=== PATIENT | female | born 1985 | race Caucasian/White ===

== ENCOUNTER 2016-12-03 10:50 | Emergency (ER) | payer OTHER ==
[~2016-12-03] VITALS: Ht 154.9 cm; Wt 71.7 kg
[~2016-12-03 10:50] MED LIST: CHOL500016 PO; CITA20TA9 PO; DOCU-27 PO; GABA-586 PO; HYDR-971 PO; IBUP-1060 PO; METO-269 PO; ONDA4TAB10 SL; ORPH100T PO; TRAM50TA PO
[2016-12-03 11:45] VITALS: BP 122/81
--- NOTE | 2016-12-03 12:39 | PHYS DOC ---
Past Medical History Past Medical History: Depression, Fibromyalgia, Migraines, Other Additional Past Medical Histor: neuropathy, chronic pain Past Surgical History: Appendectomy, , Tubal ligation, Other Additional Past Surgical Histo: carpal tunnel Additional Information: PT REPORTS 1 PPD. Alcohol Use: None Drug Use: None Adult General Chief Complaint Chief Complaint: LOWER EXT PAIN HPI HPI Patient is a 31 year old female who presents with chronic extremity pain for months. Reports pain was exacerbated last night without cause. Reports her primary suggested pain mgmt follow up with she has not done. Denies any focal weakness, numbness/tingling or accom[panying symptoms. States pain encompasses entire right leg hip to foot. Also request test Review of Systems Review of Systems Constitutional: Denies fever or chills Eyes: Denies change in visual acuity, redness, or eye pain HENT: Denies nasal congestion or sore throat Respiratory: Denies cough or shortness of breath Cardiovascular: No additional information not addressed in HPI GI: Denies abdominal pain, nausea, vomiting, bloody stools or diarrhea : Denies dysuria or hematuria Musculoskeletal: Right leg pain Integument: Denies rash or skin lesions Neurologic: Denies headache, focal weakness or sensory changes Endocrine: Denies polyuria or polydipsia Allergies Allergies Allergies Coded Allergies Type Severity Reaction Last Updated Verified No Known Drug Allergies 08/06/16 No Physical Exam Physical Exam Constitutional: Well developed, well nourished, no acute distress, non-toxic appearance. HENT: Normocephalic, atraumatic, bilateral external ears normal, oropharynx moist, no oral exudates, nose normal. Eyes: PERRLA, EOMI, conjunctiva normal, no discharge. Neck: Normal range of motion, no tenderness, supple, no stridor. Cardiovascular:Heart rate regular rhythm, no murmur Lungs & Thorax: Bilateral breath sounds clear to auscultation Abdomen: Bowel sounds normal, soft, no tenderness, no masses, no pulsatile masses. Skin: Warm, dry, no erythema, no rash. Back: No tenderness, no CVA tenderness. Extremities: No tenderness, no cyanosis, no clubbing, ROM intact, no edema. Neurologic: Alert and oriented X 3, normal motor function, normal sensory function, no focal deficits noted. Psychologic: Affect normal, judgement normal, mood normal. [] Current Patient Data Vital Signs Vital Signs Date Time Temp Pulse Resp B/P Pulse Ox O2 Delivery O2 Flow Rate FiO2 12/03/16 11:45 98.4 79 18 99 Room Air 98.4 Lab Values Laboratory Tests Test 12/03/16 12:15 12/03/16 12:28 Urine Test Negative (NEG) POC Urine HCG, Qualitative Hcg negative (Negative) EKG EKG [] Radiology/Procedures Radiology/Procedures [] Impressions: 1. Exacerbation of chronic lower extremity pain Course & Med Decision Making Course & Med Decision Making Pertinent Labs and Imaging studies reviewed. (See chart for details) [] Dragon Disclaimer Dragon Disclaimer This electronic medical record was generated, in whole or in part, using a voice recognition dictation system. Departure Departure Impression: Primary Impression: Chronic pain of right lower extremity Disposition: HOME, SELF-CARE Condition: STABLE Referrals: JERRELL GONZALEZ MD (PCP) Patient Instructions: Chronic Pain Additional Instructions: Take all medication as prescribed. Follow up with primary doctor in 1-2 days. return if any problems or concerns Scripts Hydrocodone/Apap 5-325 (Jackhorn 5-325 Tablet)1 Each Tablet1 Tab PO PRN Q6HRS PRN PAIN #10 TAB Ref 0 Prov:HERNANDEZ BUTLER APRN 12/03/16 Cyclobenzaprine Hcl 10 Mg Tablet1 Tab PO QHS #10 TAB Prov:HERNANDEZ BUTLER APRN 12/03/16 HERNANDEZ BUTLER APRN Dec 03, 2016 12:39
[2016-12-03] MEDS ORDERED: CYCL10TA2 PO (12:42)
[2016-12-03] MEDS ORDERED: HYDR-971 PO (12:42)
[2016-12-03 12:48] LABS: NEG OBC UR NEG
[2016-12-03 12:49] LABS: POS OBC UR POS
== END 2016-12-03 12:50 | disposition home or self-care (01) ==
LOC: ER 10:50
DX: G89.29 Other chronic pain (principal); M79.604 Pain in right leg; F17.200 Nicotine dependence, unspecified, uncomplicated; G43.909 Migraine, unspecified, not intractable, without status migrainosus; M79.7 Fibromyalgia; Z90.49 Acquired absence of other specified parts of digestive tract; Z98.51 Tubal ligation status; Z98.890 Other specified postprocedural states
CPT/HCPCS: 81025; 84703; 99283

== ENCOUNTER 2016-12-09 09:58 | Emergency (ER) | payer OTHER ==
[~2016-12-09] VITALS: Ht 157.5 cm; Wt 71.4 kg
[~2016-12-09 09:58] MED LIST changes: +CYCL10TA2 PO
[2016-12-09 11:58] LABS: BILIRUBIN,URINE NEGATIVE (NEG); GLUCOSE,URINE NEGATIVE (NEG); NITRITE,URINE NEGATIVE (NEG); PH,URINE 6.5; PROTEIN,URINE NEGATIVE (NEG-TRACE); UROBILINOGEN,URINE 0.2 mg/dL (0.2 mg/dL)
[2016-12-09 12:21] LABS: BACTERIA,URINE FEW /HPF (0-FEW); RBC,URINE RARE /HPF (0-2); SQUAMOUS EPITHELIAL CELL,UR MOD /LPF
--- NOTE | 2016-12-09 12:29 | PHYS DOC ---
Past Medical History Past Medical History: Depression, Fibromyalgia, Migraines, Other Additional Past Medical Histor: neuropathy, chronic pain Past Surgical History: Appendectomy, , Tubal ligation, Other Additional Past Surgical Histo: carpal tunnel Alcohol Use: None Drug Use: None Adult General Chief Complaint Chief Complaint: ABDOMINAL PAIN HPI HPI Patient is a 31 year old female who presents with many symptoms and concerned she is . She is currently asymptomatic other than abdominal bloating. She has intermittent abdominal bloating and nausea, and frequent stools. States she feels something moving in her lower abdomen like a baby. Feels mild intermittent lower abdominal pain and low back pain. Has taken home tests that are negative. States symptoms have been present for few weeks to months. LMP within past month. She denies f/c, cough, bloody or dark stools, vaginal bleeding or discharge, dysuria, hematuria. Review of Systems Review of Systems Constitutional: Denies fever or chills [] Eyes: Denies change in visual acuity, redness, or eye pain [] HENT: Denies nasal congestion or sore throat [] Respiratory: Denies cough or shortness of breath [] Cardiovascular: No additional information not addressed in HPI [] GI: Denies abdominal pain, nausea, vomiting, bloody stools or diarrhea [] : Denies dysuria or hematuria [] Musculoskeletal: Denies back pain or joint pain [] Integument: Denies rash or skin lesions [] Neurologic: Denies headache, focal weakness or sensory changes [] Endocrine: Denies polyuria or polydipsia [] Allergies Allergies Allergies Coded Allergies Type Severity Reaction Last Updated Verified No Known Drug Allergies 08/06/16 No Physical Exam Physical Exam Constitutional: Well developed, well nourished, no acute distress, non-toxic appearance. [] HENT: Normocephalic, atraumatic, bilateral external ears normal, oropharynx moist, nose normal. [] Eyes: PERRLA, EOMI. [] Neck: Normal range of motion, supple. [] Cardiovascular:Heart rate regular rhythm [] Lungs & Thorax: Bilateral breath sounds clear to auscultation [] Abdomen: Bowel sounds normal, soft, no tenderness, no masses. [] Skin: Warm, dry, no erythema, no rash. [] Back: No tenderness, no CVA tenderness. [] Extremities: No tenderness, ROM intact, no edema. [] Neurologic: Alert and oriented X 3, normal motor function, normal sensory function, no focal deficits noted. [] Psychologic: Affect normal, judgement normal, mood normal. [] Current Patient Data Vital Signs Vital Signs Date Time Temp Pulse Resp B/P Pulse Ox O2 Delivery O2 Flow Rate FiO2 12/09/16 12:47 81 20 108/73 94 12/09/16 11:20 98.0 Room Air 98.0 Lab Values Laboratory Tests Test 12/09/16 11:10 12/09/16 11:18 Urine Collection Type Void Urine Color Yellow Urine Clarity Clear Urine pH 6.5 Urine Specific [place] 1.010 Urine Protein Negativemg/dL (NEG-TRACE) Urine Glucose (UA) Negativemg/dL (NEG) Urine Ketones (Stick) Negativemg/dL (NEG) Urine Blood Negative (NEG) Urine Nitrite Negative (NEG) Urine Bilirubin Negative (NEG) Urine Urobilinogen Dipstick 0.2mg/dL (0.2 mg/dL) Urine Leukocyte Esterase Negative (NEG) Urine RBC Rare/HPF (0-2) Urine WBC 1-4/HPF (0-4) Urine Squamous Epithelial Cells Mod/LPF Urine Bacteria Few/HPF (0-FEW) POC Urine HCG, Qualitative Hcg negative (Negative) Course & Med Decision Making Course & Med Decision Making Pertinent Labs and Imaging studies reviewed. (See chart for details) UCG neg, UA unremarkable. Encouraged PCP follow up. Return precautions given. She understands and agrees with plan. Dragon Disclaimer Dragon Disclaimer This electronic medical record was generated, in whole or in part, using a voice recognition dictation system. Departure Departure Impression: Primary Impression: Lower abdominal pain Disposition: 01 HOME, SELF-CARE Condition: STABLE Referrals: JERRELL GONZALEZ MD (PCP) Patient Instructions: Diarrhea, [id number] Additional Instructions: Take Tylenol or ibuprofen as needed for pain. Follow-up with your primary care doctor within one week. Return for any concerns. Jean MCCARTHY MD Dec 09, 2016 12:29
[2016-12-09 12:47] VITALS: BP 108/73
== END 2016-12-09 12:48 | disposition home or self-care (01) ==
LOC: ER 09:58
DX: R10.30 Lower abdominal pain, unspecified (principal); G89.29 Other chronic pain; M79.7 Fibromyalgia; Z90.49 Acquired absence of other specified parts of digestive tract; Z98.51 Tubal ligation status
CPT/HCPCS: 81001; 81025; 99283

== ENCOUNTER 2018-02-04 19:48 | Emergency (ER) | payer OTHER | END 2018-02-04 20:24 | disposition home or self-care (01) | LOC: ER 19:48 | DX: L03.116 Cellulitis of left lower limb (principal); S90.862A Insect bite (nonvenomous), left foot, initial encounter; G43.909 Migraine, unspecified, not intractable, without status migrainosus; G89.29 Other chronic pain; W57.XXXA Bitten or stung by nonvenomous insect and other nonvenomous arthropods, initial encounter; Y93.89 Activity, other specified; Y99.8 Other external cause status; Y92.89 Other specified places as the place of occurrence of the external cause | CPT/HCPCS: 99283 ==

== ENCOUNTER → 2019-01-12 | Outpatient (CLI) | payer OTHER ==
[2018-02-04 20:04] VITALS: BP 160/91
[~2019-01-12] MED LIST changes: +DOCU-109 PO; -DOCU-27 PO; -GABA-586 PO; +GABA300C18 PO; +HYDR-3164 PO; -HYDR-971 PO; +IBUP-1007 PO; +SULF1TAB24 PO
--- NOTE | 2019-01-12 10:57 | RAD ---
DATE: 01/12/2019 EXAM: DIGITAL DIAGNOSTIC BILATERAL, BREAST BILATERAL HISTORY: Medial right breast pain COMPARISON: Baseline study This study was interpreted with the benefit of Computerized Aided Detection (CAD). Breast Density: SCATTERED The breast parenchyma shows scattered fibroglandular densities. Breast parenchyma level B. FINDINGS: 2-D imaging of both breasts was performed in CC and MLO projections, as well as CC tomosynthesis imaging on the right. There is a smooth7 mm nodule in the inferomedial aspect of the right breast posteriorly at approximately the 3-4:00 location as best seen on CC tomosynthesis images #19. No other unusual breast densities are seen. No suspicious microcalcifications are evident. Right breast ultrasound, 01/12/2019: A targeted ultrasound exam of the medial right breast was performed. Heterogeneous fibroglandular shadows are present. No mass or unusual fluid collection is seen. No sonographic correlate for the mammographically detected nodule was evident. IMPRESSION: Small smooth right breast nodule with no sonographic correlate. Mammographic follow-up beginning in 4-6 months is suggested. BI-RADS CATEGORY: 3 PROBABLY BENIGN FINDING(S)-SHORT INTERVAL FOLLOW-UP SUGGESTED RECOMMENDED FOLLOW-UP: 6M 6 MONTH FOLLOW-UP PQRS compliance statement: Patient information was entered into a reminder system with a target due date for the next mammogram. Mammography is a sensitive method for finding small breast cancers, but it does not detect them all and is not a substitute for careful clinical examination. A negative mammogram does not negate a clinically suspicious finding and should not result in delay in biopsying a clinically suspicious abnormality. "Our facility is accredited by the [employer] Mammography Program."
== END | disposition home or self-care (01) ==
LOC: MAMMO 15:31
PROVIDERS: ATTEND Family Medicine
DX: N63.14 Unspecified lump in the right breast, lower inner quadrant (principal)
CPT/HCPCS: 76641; 77066

== ENCOUNTER → 2019-02-14 | Outpatient (CLI) | payer OTHER ==
[2018-02-04 20:04] VITALS: BP 160/91
--- NOTE | 2019-02-14 16:57 | RAD ---
EXAM: Pelvic sonogram. HISTORY: Dysmenorrhea. TECHNIQUE: Transabdominal and transvaginal sonographic imaging of the pelvis was performed. COMPARISON: None. FINDINGS: The uterus measures 9.8 x 6.8 x 5.7 cm. The endometrial stripe is thickened, measuring 15 mm. The ovaries are normal in size transabdominally and not seen transvaginally. There is normal blood flow within both ovaries. There is a 7 mm nabothian cyst within the cervix. There is no pelvic free fluid. IMPRESSION: 1. Slightly thickened endometrial stripe, measuring 15 mm. This may be due to the phase of the patient's menstrual cycle. 2. Small nabothian cyst within the cervix. Electronically signed by: Zaina Vogt MD (02/14/2019 4:54 PM) [facility]
== END | disposition home or self-care (01) ==
LOC: US 15:07
PROVIDERS: ATTEND Family Medicine
DX: N88.8 Other specified noninflammatory disorders of cervix uteri (principal)
CPT/HCPCS: 76830; 76856

== ENCOUNTER 2019-04-18 07:26 | Day surgery (SDC) | payer OTHER ==
[~2019-04-18] VITALS: Ht 156.2 cm; Wt 97.5 kg
[~2019-04-18 07:26] MED LIST changes: +BUPIVACAINE MPF 0.5% 30 ML VIAL. ONE; +HYDROmorphone 2 MG/ML VIAL IV PRN; +IV RINGERS,LACTATED 1000ML 1,000 ML IV SCH; +LIDOCAINE 1% 20 ML VIAL. ONE; +LIDOCAINE 1% PF 2 ML VIAL. ID PRN; +LIDOCAINE 1% PF 30 ML VIAL. ONE; +LIDOCAINE 2% PF 5 ML VIAL. ONE; +MIDAZOLAM HCL/PF 2 MG/2 ML VIAL. ONE; +ONDANSETRON PF 4 MG/2 ML VIAL. IV PRN; +ONDANSETRON PF 4 MG/2 ML VIAL. ONE; +PROCHLORPERAZINE 10 MG/2 ML VIAL. IV PRN; +PROPOFOL 20 ML IV ONE; +fentaNYL PF VIAL 100 MCG/2 ML VIAL IV PRN; +fentaNYL PF VIAL 100 MCG/2 ML VIAL ONE
--- NOTE | 2019-04-18 07:53 | DISCH ---
DISCHARGE INSTRUCTIONS Condition on Discharge Condition on Discharge: Stable Activity After Discharge Activity Instructions for Disc: Activity as tolerated, Other, see below Other activity instructions: AROM at wrist and fingers Bathing Instructions: Shower-keep dressing dry Lifting Instructions after Dis: No heavy lifting, No pulling or pushing Weight Bearing Status after Di: As tolerated, Non weight bearing Diet after Discharge Diet after Discharge: Regular Wound Incision Care Wound/Incision Care: Ice to area for comfort, Keep wound/cast CDI, Keep wound elevated, Do not change dressing Contacting the [facility] after DC Call your doctor for: Concerns you may have Follow-Up Follow up with: [facility] in 2wks Treatment/Equipment after DC Adaptive Equipment Issued: None HANNAH BRYANT II, MD Apr 18, 2019 07:53
[2019-04-18 08:26] LABS: U PREG PATIENT NEGATIVE (NEG)
[2019-04-18] MEDS ORDERED: PROPOFOL 20 ML IV ONE (09:43)
[2019-04-18] MEDS ORDERED: KETOROLAC 30 MG/ML INJ FOR OR. INJ ONE (10:01)
--- NOTE | 2019-04-18 10:07 | PDOC4 ---
Operative Note Operative Note Date of procedure: 04/18/2019 Surgeon: Chidi Bryant Preoperative diagnosis: Left carpal tunnel syndrome Postoperative diagnosis: Same Procedure performed: Open left carpal tunnel release Anesthesia: Cibolo block with sedation Findings: normal appearing median nerve Blood loss: 2mL Tourniquet time: 25min Complications: none Reason for procedure: Patient is very pleasant individual who has had long- standing symptoms consistent with their electromyographically proven EMG diagnosis of carpal tunnel syndrome. We had tried and failed conservative therapies and had a discussion of the risks, benefits, alternatives to the above surgery and they wished to proceed. Description of procedure: Patient was greeted in the preoperative area by myself for the correct extremity was verified and marked. They were then taken back to the operative suite, antibiotics were started as they were brought back. Once in the operating room, patient was transferred gently supine to the operating room table. The hand board attached and was applied to the operating room table. She underwent successful induction of a Cibolo block followed by sedation. The left upper extremity was then prepped and draped in our usual sterile fashion and we conducted our standard preoperative timeout.after this, I made an incision over the transverse carpal ligament from the distal wrist crease into the palm through a palmar crease. I incised skin with a scalpel and dissected subcutaneous tissue with a curved hemostat. I used bipolar cautery for hemostasis. Identified the palmar fascia and incised this in line with the skin incision and then placed myself retaining retractor. I identified the transverse carpal ligament and incised this with a scalpel. I then placed a Ragnell retractor in the distal portion of the incision, spread above and below small remaining portion of the transverse carpal ligament and transected this with a tenotomy scissors into the palm. After this, I repeated this maneuver and an ulnar directed fashion to release the distal antebrachial fascia at the proximal portion of the incision. I then palpated along the course of the median nerve with the tip of the tenotomies to help ensure that accomplished a complete release. The operative field was then irrigated out with sterile saline. After this, skin was closed with 3-0 nylon in a mattress fashion. A sterile bulky soft dressing was then applied to the patient�s hand and wrist. The tourniquet was let down, hemostasis had been achieved with electrocautery. Patient tolerated surgery well. No complications. At the conclusion, they were awakened and transferred gently supine to the recovery room cart and taken to the PACU in a stable and extubated condition. Postoperative plan is to discharge patient home. Frequent range of motion at digits and wrist was encouraged. The patient was instructed not to lift anything heavy. We will see her back in 2 weeks, sooner should a problem arise. CHIDI BRYANT II, MD Apr 18, 2019 10:07
[2019-04-18] MEDS: MORPHINE SULFATE 2 MG/ML VIAL. IV PRN ×2 (10:35→10:47)
[2019-04-18] MEDS ORDERED: HYDROcodone/APAP 5/325MG 1 TAB TABLET PO ONE (10:45)
[2019-04-18] MEDS ORDERED: ONDA4TAB7 PO (11:14)
[2019-04-18 11:40] VITALS: BP 114/81
== END 2019-04-18 12:07 | disposition home or self-care (01) ==
LOC: SURG 07:26
PROVIDERS: ATTEND Orthopaedic Surgery Sports Medicine
DX: G56.02 Carpal tunnel syndrome, left upper limb (principal)
CPT/HCPCS: 64721; 81025; J0690; J0696; J1885; J2001; J2250; J2270; J2405; J2704; J3010; J3490

== ENCOUNTER → 2019-06-28 | Outpatient (CLI) | payer MEDICAID ==
[~2019-06-28] MED LIST changes: -BUPIVACAINE MPF 0.5% 30 ML VIAL. ONE; -HYDROmorphone 2 MG/ML VIAL IV PRN; -IV RINGERS,LACTATED 1000ML 1,000 ML IV SCH; -LIDOCAINE 1% 20 ML VIAL. ONE; -LIDOCAINE 1% PF 2 ML VIAL. ID PRN; -LIDOCAINE 1% PF 30 ML VIAL. ONE; -LIDOCAINE 2% PF 5 ML VIAL. ONE; -MIDAZOLAM HCL/PF 2 MG/2 ML VIAL. ONE; +ONDA4TAB7 PO; -ONDANSETRON PF 4 MG/2 ML VIAL. IV PRN; -ONDANSETRON PF 4 MG/2 ML VIAL. ONE; -PROCHLORPERAZINE 10 MG/2 ML VIAL. IV PRN; -PROPOFOL 20 ML IV ONE; -fentaNYL PF VIAL 100 MCG/2 ML VIAL IV PRN; -fentaNYL PF VIAL 100 MCG/2 ML VIAL ONE
--- NOTE | 2019-06-28 17:46 | RAD ---
DATE: 06/28/2019 EXAM: DIGITAL DIAGNOSTIC RT, BREAST RIGHT HISTORY: Six-month follow-up for palpable abnormality. COMPARISON: 01/12/2019 screen mammographic exam 01/12/2019 right breast ultrasound This study was interpreted with the benefit of Computerized Aided Detection (CAD). Breast Density: SCATTERED The breast parenchyma shows scattered fibroglandular densities. Breast parenchyma level B. FINDINGS: A BB marker was placed on the right lower inner breast where a palpable abnormality is reported. No suspicious findings at this site on mammographic imaging. Parenchymal distribution is stable. Limited right lower inner quadrant breast ultrasound exam was performed at the site of the reported palpable abnormality. No suspicious imaging finding. No suspicious finding upon physical exam by myself at the site of interest reported by the patient. IMPRESSION: Stable. BI-RADS CATEGORY: 1 NEGATIVE RECOMMENDED FOLLOW-UP: 12M 12 MONTH FOLLOW-UP PQRS compliance statement: Patient information was entered into a reminder system with a target due date at the age of 36 years unless clinically indicated to be performed sooner for the next mammogram. Mammography is a sensitive method for finding small breast cancers, but it does not detect them all and is not a substitute for careful clinical examination. A negative mammogram does not negate a clinically suspicious finding and should not result in delay in biopsying a clinically suspicious abnormality. "Our facility is accredited by the [employer] Mammography Program."
== END | disposition home or self-care (01) ==
LOC: MAMMO 12:50
PROVIDERS: ATTEND Family Medicine
DX: R92.8 Other abnormal and inconclusive findings on diagnostic imaging of breast (principal)
CPT/HCPCS: 76641; 77065

== ENCOUNTER 2019-09-19 06:10 | Observation (INO) | payer MEDICAID ==
[~2019-09-19] VITALS: Ht 156.2 cm; Wt 89.8 kg
[2019-09-19] VITALS (10 sets, daily range): BP systolic 96–129; BP diastolic 51–82
[~2019-09-19 06:10] MED LIST changes: +BUSP15TA PO; +HYDR50CA PO; +PROP10TA PO; +SUMA50TA3 PO; +VENL225T PO
[2019-09-19] MEDS: IV RINGERS,LACTATED 1000ML 1,000 ML IV SCH ×2 (06:46→11:16)
[2019-09-19] MEDS ORDERED: MORPHINE SULFATE 2 MG/ML VIAL. IV PRN ×2 (07:00→10:30)
[2019-09-19] MEDS ORDERED: ceFAZolin 2GM PREMIX 2 GM/50 ML BAG IV ONE (07:00)
[2019-09-19] MEDS ORDERED: HYDROmorphone 2 MG/ML VIAL IV PRN (07:00)
[2019-09-19] MEDS ORDERED: ONDANSETRON PF 4 MG/2 ML VIAL. IV PRN (07:00)
[2019-09-19] MEDS ORDERED: PROCHLORPERAZINE 10 MG/2 ML VIAL. IV PRN (07:00)
[2019-09-19] MEDS ORDERED: fentaNYL PF VIAL 100 MCG/2 ML VIAL IV PRN (07:00)
[2019-09-19] MEDS ORDERED: LIDOCAINE 1% PF 2 ML VIAL. ID PRN (07:00)
[2019-09-19] MEDS ORDERED: SEVOFLURANE > 120 MINUTES. IH ONE (07:06)
[2019-09-19] MEDS ORDERED: KETOROLAC 30 MG/ML VIAL. ONE (07:07)
[2019-09-19] MEDS ORDERED: MIDAZOLAM HCL/PF 2 MG/2 ML VIAL. ONE (07:07)
[2019-09-19] MEDS ORDERED: GLYCOPYRROLATE 1 MG/5 ML VIAL. ONE (07:07)
[2019-09-19] MEDS ORDERED: PROPOFOL 20 ML IV ONE (07:07)
[2019-09-19] MEDS ORDERED: NEOSTIGMINE METHYLSULFATE 5 MG/5 ML SYRINGE. ONE (07:07)
[2019-09-19] MEDS ORDERED: ROCURONIUM 50 MG/5 ML VIAL. ONE (07:07)
[2019-09-19] MEDS ORDERED: fentaNYL PF VIAL 100 MCG/2 ML VIAL ONE ×2 (07:07→10:04)
[2019-09-19] MEDS ORDERED: LIDOCAINE 2% PF 5 ML VIAL. ONE (07:07)
[2019-09-19] MEDS ORDERED: DEXAMETHASONE SOD PHOS 4 MG/ML VIAL ONE (07:08)
[2019-09-19] MEDS ORDERED: ONDANSETRON PF 4 MG/2 ML VIAL. ONE (07:08)
[2019-09-19 07:14] LABS: BASO # 0.1 x10^3/uL (0.0-0.2); BASO % 1 % (0-3); EOS # 0.3 x10^3/uL (0.0-0.7); EOS % 3 % (0-3); HEMATOCRIT 36.7 % (36.0-47.0); HEMOGLOBIN 11.9 g/dL (12.0-15.5); LYMPH # 2.7 x10^3/uL (1.0-4.8); LYMPH % 25 % (24-48); MEAN CORPUSCULAR HEMOGLOBIN 27 pg (25-35); MEAN CORPUSCULAR HGB CONC 32 g/dL (31-37); MEAN CORPUSCULAR VOLUME 84 fL (79-100); MONO # 0.6 x10^3/uL (0.0-1.1); MONO % 5 % (0-9); NEUT # 7.1 x10^3/uL (1.8-7.7); NEUT % 66 % (31-73); PLATELET COUNT 465 x10^3/uL (140-400); WHITE BLOOD COUNT 10.7 x10^3/uL (4.0-11.0)
--- NOTE | 2019-09-19 07:18 | PDOC1 ---
H & P. HPI: 34y presents for scheduled surgery. The pt presented to her visit on 09/05/19 b/c she states that she really wants a hysterectomy. She states that her periods are horrible. She reports that her flow last 6-7 days and is always heavy. She feels that it may have been worse since her BTL in 2011. After thinking about it for a whole she feels that maybe the pain with her period developed at that time and that her bleeding did not change significantly. She states that prior to her BTL she never used any form of hormonal contraception. The pt states that she has never tried any form of management of her bleeding issues. In January (02/14/19) the pt underwent an u/s for dysmenorrhea. The pt was found to have a uterus that measured 9.8 x 6.8 x 5.7. no significant abnormalities were seen on u/s. Her last Hgb was 12.2 (08/31/19). Her pap this yr was neg/neg. Discussed tx options for heavy, painful bleeding. At her visit we discussed expectant, medical and surgical management. Discussed medical management typically included hormonal contraception. Explained that hormonal contraception containing estrogen was typically not used with if someone had migraines with aura, but since she did not have aura they would be an available option. To avoid any risk progesterone-only contraceptions (like Depo, IUD, or Nexplanon) would be excellent choices. Also discussed the two common surgical options of ablation and hysterectomy. Explained that Novasure was associated with a amenorrhea rate of ~1 out of 3 (36%) and a pt satisfaction of ~9 out of 10 (92%) regardless of if they no longer had bleeding. Explained that it was an outpt procedure that may solve her above bleeding issues. Discussed hysterectomy with the pt. The pt is well aware that with a hysterectomy she can no longer have children. She is ok with this hence the BTL 7 yrs ago. Discussed the modes of hysterectomy with the pt including TVH, LAVH/robot, and [place]. Explained that based on the size of her uterus she would be a reasonable candidate for a LAVH. Explained the fact that she has never had a vaginal delivery and has had 4 x C/S if may make it difficult to complete the procedure without opening. She understands. After hearing the options, the pt is still interested in a hysterectomy. She likes the idea of having a permanent solution and not having to worry if the ablation does not work. She wonders if she has a hysterectomy will she go through menopause. Explained that most women with through menopause at 52yo. Explained that at her young age removing her ovary would not be recommended, especially since they were not associated with her present symptoms. Since they would not be removed she would go through menopause at the nml age. After the exam, the pt asked if a bimanual was suppose to feel like that. Explained that a pt may have a slight tenderness with palpation of their ova martha, but one should not have diffuse pain with the exam itself. The pt states that most recently she has been having dyspareunia. She feels this is odd especially since she has had 4 children. She ask if this is nml. The pt was told that dyspareunia is not nml. Explained the cause of dyspareunia could be emotional or physiologic. Often finding the exact cause was not a quick solut ion. Explained that a hysterectomy was not associated with improving or making dyspareunia worse. Explained that we could determine the cause of her dyspareunia before proceeding to hysterectomy. The pt would prefer to have her bleeding issues addressed JOHN. OBHx: SAB x 1, TC/S x 4 (1st for distress/"cord wrapped around baby's neck") Multineedle Shirrer: LMP No h/o hormonal contraception BTL 2011 16yo / regular interval SH: 1PPD, no EtOH. ROS: Constitutional: Denies fever, fatigue, chills HEENT: Denies sore throat, vision changes Cardio: Denies chest pain, dyspnea with exertion, syncope, palpitations, edema Pulmonary: Denies shortness of breath, cough, wheezing GI: Denies nausea, vomiting, diarrhea, constipation : Denies dysuria, frequency, urgency, incontinence Skin: Denies new lesions Neuro: Denies weakness, paresthesias MEDS: Reviewed and reconciled ALLERGIES: Reviewed PE: IMPLEMENTATION SPECIALIST PAYROLL:: Cycle Repairer: present. CONSTITUTIONAL:: General Appearance: healthy-appearing , well-nourished , well-developed. PSYCHIATRIC:: Orientation: to time, place and person. Mood and Affect: normal mood , affect and active and alert. SKIN:: Appearance: no rashes or lesions. NECK:: Neck: supple , FROM , trachea midline , no masses. Thyroid: no enlargement or nodules, non-tender. LUNGS:: Respiratory Effort: no intercostal retractions or accessory muscle usage. Auscultation: no wheezing , rales/crackles , or rhonchi , clear to auscultation. CARDIOVASCULAR:: Auscultation: RRR and no murmur. Peripheral Vascular: no varicosities , LLE edema , RLE , calf tenderness , palpable cords and pedal pulses intact. ABDOMEN:: Auscultation/Inspection/Palpation: no tenderness , hepatomegaly , splenomegaly , masses , or CVA tenderness and soft , non-distended , non- distended , normal bowel sounds. Hernia: non palpated. VULVA:: Vulva: no masses , atrophy , or lesions. VAGINA:: Vagina: no tenderness , erythema , cyctocele , rectocele , or vesicle(s) , or ulcers , normal atrophy , and no vaginal discharge. CERVIX:: Cervix: no discharge , or cervical motion tenderness , and grossly normal. UTERUS:: Uterus: normal size , shape and midline , mobile , non-tender , and no uterine prolapse. BLADDER/URETHRA:: Bladder/Urethra: no urethral discharge , or mass , normal meatus , and bladder non distended. ADNEXA/PARAMETRIA:: Adenexa/Parametria: no parametrial tenderness , or mass , or no adnexal tenderness , or ovarian mass. LYMPH NODES: Palpation: non tender submandibular nodes , axillary nodes , or inguinal nodes. ASSESSMENT & PLAN: A/P 34y with heavy painful bleeding 1.) Heavy bleeding - pt reports most of her life, H/H nml, discussed tx options, pt would prefer hysterectomy, discussed attempting L/S, but chance of converting based on C/S x 4 and no h/o . Will attempt to obtain records of last C/S from [facility] to see if intraop findings compatible with L/S approach, will schedule for LAVH after approval 2.) Dysmenorrhea - as above 3.) Dyspareunia - since pt did not report until the end of visit, not fully investigated, briefly discussed causes with the pt. The pt would prefer eval after tx of heavy bleeding/dysmenorrhea. 4.) Contraception - BTL 5.) H/o C/S x 4 6.) Tob use - discussed cessation 7.) Multineedle Shirrer screening - up to date on pap and mammogram (mammogram requiring repeat dx in 4-6 months) RODERICK GIL MD Sep 19, 2019 07:18
[2019-09-19 07:47] LABS: CALCIUM 8.7 mg/dL (8.5-10.1); CREATININE 0.7 mg/dL (0.6-1.0); GFR 96.4; POTASSIUM 3.7 mmol/L (3.5-5.1)
[2019-09-19] MEDS ORDERED: PHENYLEPHRINE in 0.9% NACL PF 1 MG/10 ML SYRINGE. IV ONE (07:48)
[2019-09-19] MEDS ORDERED: ePHEDrine PF IN SALINE 50 MG/10 ML SYRINGE. IV ONE (07:54)
[2019-09-19] MEDS ORDERED: IV NORMAL SALINE 1000ML BAG 1,000 ML IV SCH (10:24)
[2019-09-19] MEDS ORDERED: diphenhydrAMINE HCL 25 MG CAPSULE PO PRN (10:30)
[2019-09-19] MEDS ORDERED: DEXTROSE 50% 25 GM / 50ML DISP.SYRIN. IV PRN (10:30)
[2019-09-19] MEDS ORDERED: HYDROcodone/APAP 5/325MG 1 TAB TABLET PO PRN (10:30)
[2019-09-19] MEDS ORDERED: diphenhydrAMINE 50 MG/ML VIAL IV PRN (10:30)
[2019-09-19] MEDS ORDERED: 0.9 % SODIUM CHLORIDE 10 ML DISP.SYRIN. IV PRN (10:30)
[2019-09-19] MEDS ORDERED: NALOXONE 0.4 MG/ML VIAL. IV PRN (10:30)
[2019-09-19] MEDS ORDERED: IBUPROFEN 200 MG TABLET. PO PRN (10:30)
--- NOTE | 2019-09-19 11:16 | OP ---
DATE OF SURGERY: 09/19/2019 PREOPERATIVE DIAGNOSES: 1. Heavy bleeding. 2. Dysmenorrhea. 3. History of section x 4. 4. Tobacco use. POSTOPERATIVE DIAGNOSES: 1. Heavy bleeding. 2. Dysmenorrhea. 3. History of section x 4. 4. Tobacco use. PROCEDURE: Laparoscopic-assisted vaginal hysterectomy with bilateral salpingectomy. ANESTHESIA: General endotracheal intubation. ESTIMATED BLOOD LOSS: 400 mL. URINE OUTPUT: Clear. FINDINGS: Normal uterus, tubes, and ovaries with post-tubal changes noted. COMPLICATIONS: None. SPECIMENS REMOVED: Uterus, tubes, and cervix. DESCRIPTION OF PROCEDURE: The patient was taken to the operating room where general endotracheal intubation was obtained without difficulty. The patient was prepped and draped in normal sterile fashion. Attention was first turned to the vagina where a speculum was placed to visualize the cervix. The anterior lip of the cervix was then grasped with a single-tooth tenaculum. A Thompson acorn uterine manipulator was then placed into the uterine cavity. At that point, a Banks catheter was placed into the patient's bladder. Attention was then turned to the abdomen where a 5-mm skin incision was made in her infraumbilical fold. At that point, the Veress needle was introduced into the incision. The Veress needle did not appear to be in the abdominal cavity due to the elevated opening gas pressure. The Veress needle was attempted to be advanced, but still did not appear to be in the intra-abdominal cavity. At that point, the Veress needle was removed and a 5-mm trocar was then placed directly into the abdomen. Intra-abdominal placement was confirmed with the laparoscope. At that point, the abdomen was insufflated to 15 mmHg. Once the abdomen was insufflated, a second trocar was then placed on the left approximately two-thirds between the ischial spine and the umbilicus; first by making 5-mm skin incision followed by placing the trocar under direct visualization of the laparoscope. Attention was then turned to the right where a 5-mm trocar was then placed in similar fashion approximately two-thirds between the ischial spine and the umbilicus by first making a 5-mm skin incision and then placing the 5-mm trocar under direct visualization of the laparoscope. Visualization of the pelvis revealed relatively normal anatomy with the exception of an omental adhesion midline. The adhesion was not obstructing to the case so it was not taken down. The connection between the bladder and the uterus appeared dense, consistent with her previous sections, but appeared that it would be able to be taken off the uterus laparoscopically. Attention was first turned to the left. Left tube was then grasped at the fimbria. The tube was then and removed from the ovary with the LigaSure device. Since she had a tubal previously, the lateral portion of the left tube had to be removed separately. This was sent with the rest of the specimen. At that point, the rest of the tube was to the level of the uterus. Once the tube was from the ovary, the LigaSure device was used to cut through the round ligament. The LigaSure device was then used to serially coagulate and cut the uterine pedicles to the level of the uterine artery. At that point, the peritoneum was undermined to allow for the creation of a bladder flap. The bladder flap was then brought to the midline. Additional bites were then taken of the uterine vessels with the LigaSure device. Attention was then turned to the right where the tube again was from the ovary. The lateral portion of the tube had to be taken out separately as well. At that point, the tube was to the level of the uterus. Once again, the round ligament was cut and coagulated with the LigaSure device. The uterine pedicle on the right were then serially coagulated and cut with the LigaSure device to the level of the uterine artery. At that point, the peritoneum was undermined to complete the bladder flap once this has been accomplished. At that point, good hemostasis was noted. At that point, all instruments were removed. Attention was then turned to the vagina. The cervix was circumferentially cut with the Bovie device. At that point, the pubovesical fascia was then dissected from the bladder with Metzenbaum scissors. Once the anterior cul-de-sac was entered, attention was then turned to the posterior cul-de-sac where Dutta scissors were used to enter the peritoneum posteriorly. At that point, a Ketan clamp was used to grasp the left uterosacral ligament. This was then cut and tagged with 0 Vicryl. This was then performed on the right, where the right uterosacral ligament was grasped with a Ketan clamp, cut and tagged. Once this had been performed, uterus was serially clamped, cut, and tied until all pedicles were free. The uterus was then delivered. Once good hemostasis was noted, the vaginal cuff was then closed first by making a vmeqwi-di-bvhyc stitch on the left with the second pass, including the left uterosacral ligament. This was then tagged. Attention was then turned to the right side where a pugbui-yw-scjks stitch was placed at this corner with a second pass including the right uterosacral ligament. Two additional uzqzlv-uv-mfmzs stitches were then placed to close the remainder of the cuff. The cuff was then irrigated. Good hemostasis was noted. All the stitches were cut. Attention was then returned to the abdomen. Once again survey of the vaginal cuff laparoscopically revealed good hemostasis. The ureters were observed peristalsing. The peritoneum was then irrigated, again good hemostasis was noted. At that point, all instruments were removed as well as the trocars. The laparoscopic incisions were then closed with 3-0 Vicryl. At that point, the patient tolerated the procedure well and was taken to the recovery room in stable condition. Sponges, laps, and needles were correct x 3. RODERICK GIL MD DR: KARTHIK/kelby JOB#: [id number] / [id number] LIVIER
[2019-09-19] MEDS: fentaNYL PF VIAL 100 MCG/2 ML VIAL IV PRN ×2 (11:33→11:47)
[2019-09-19] MEDS ORDERED: FLU VAX QS 2019-20 (36MOS+)/PF 0.5 ML SYRINGE. VAX IM ONE (13:15)
[2019-09-19] MEDS: KETOROLAC 30 MG/ML VIAL. IV PRN ×2 (15:38→21:52)
[2019-09-19] MEDS: IV DEXTROSE 5 %-0.45 % NACL 1,000 ML IV SCH (15:39)
--- NOTE | 2019-09-19 16:30 | PDOC ---
PROGRESS NOTES Subjective Subjective Pt with good pain control. Estelle CLD. Discussed removal of Banks later this afternoon. Objective Objective Vital Signs Date Time Temp Pulse Resp B/P (MAP) Pulse Ox O2 Delivery O2 Flow Rate FiO2 09/19/19 14:12 Nasal Cannula 2.0 09/19/19 13:30 79 102/69 (80) 96 09/19/19 12:00 97.9 16 97.9 Assessment Assessment A/P 34y POD #0 s/p LAVH/BS 1.) PO - doing well, will d/c Banks at 1700 2.) Cont PO care Comment Review of Relevant I have reviewed the following items dilia (where applicable) has been applied. Labs Laboratory Tests Test 09/19/19 06:21 09/19/19 06:38 Bedside Urine HCG, Qualitative Hcg negative (Negative) White Blood Count 10.7 x10^3/uL (4.0-11.0) Red Blood Count 4.40 x10^6/uL (3.50-5.40) Hemoglobin 11.9 g/dL (12.0-15.5) Hematocrit 36.7 % (36.0-47.0) Mean Corpuscular Volume 84 fL (79-100) Mean Corpuscular Hemoglobin 27 pg (25-35) Mean Corpuscular Hemoglobin Concent 32 g/dL (31-37) Red Cell Distribution Width 17.0 % (11.5-14.5) Platelet Count 465 x10^3/uL (140-400) Neutrophils (%) (Auto) 66 % (31-73) Lymphocytes (%) (Auto) 25 % (24-48) Monocytes (%) (Auto) 5 % (0-9) Eosinophils (%) (Auto) 3 % (0-3) Basophils (%) (Auto) 1 % (0-3) Neutrophils # (Auto) 7.1 x10^3/uL (1.8-7.7) Lymphocytes # (Auto) 2.7 x10^3/uL (1.0-4.8) Monocytes # (Auto) 0.6 x10^3/uL (0.0-1.1) Eosinophils # (Auto) 0.3 x10^3/uL (0.0-0.7) Basophils # (Auto) 0.1 x10^3/uL (0.0-0.2) Sodium Level 138 mmol/L (136-145) Potassium Level 3.7 mmol/L (3.5-5.1) Chloride Level 101 mmol/L (98-107) Carbon Dioxide Level 25 mmol/L (21-32) Anion Gap 12 (6-14) Blood Urea Nitrogen 6 mg/dL (7-20) Creatinine 0.7 mg/dL (0.6-1.0) Estimated GFR (Cockcroft-Gault) 96.4 Glucose Level 88 mg/dL (70-99) Calcium Level 8.7 mg/dL (8.5-10.1) Laboratory Tests Test 09/19/19 06:21 09/19/19 06:38 Bedside Urine HCG, Qualitative Hcg negative (Negative) White Blood Count 10.7 x10^3/uL (4.0-11.0) Red Blood Count 4.40 x10^6/uL (3.50-5.40) Hemoglobin 11.9 g/dL (12.0-15.5) Hematocrit 36.7 % (36.0-47.0) Mean Corpuscular Volume 84 fL (79-100) Mean Corpuscular Hemoglobin 27 pg (25-35) Mean Corpuscular Hemoglobin Concent 32 g/dL (31-37) Red Cell Distribution Width 17.0 % (11.5-14.5) Platelet Count 465 x10^3/uL (140-400) Neutrophils (%) (Auto) 66 % (31-73) Lymphocytes (%) (Auto) 25 % (24-48) Monocytes (%) (Auto) 5 % (0-9) Eosinophils (%) (Auto) 3 % (0-3) Basophils (%) (Auto) 1 % (0-3) Neutrophils # (Auto) 7.1 x10^3/uL (1.8-7.7) Lymphocytes # (Auto) 2.7 x10^3/uL (1.0-4.8) Monocytes # (Auto) 0.6 x10^3/uL (0.0-1.1) Eosinophils # (Auto) 0.3 x10^3/uL (0.0-0.7) Basophils # (Auto) 0.1 x10^3/uL (0.0-0.2) Sodium Level 138 mmol/L (136-145) Potassium Level 3.7 mmol/L (3.5-5.1) Chloride Level 101 mmol/L (98-107) Carbon Dioxide Level 25 mmol/L (21-32) Anion Gap 12 (6-14) Blood Urea Nitrogen 6 mg/dL (7-20) Creatinine 0.7 mg/dL (0.6-1.0) Estimated GFR (Cockcroft-Gault) 96.4 Glucose Level 88 mg/dL (70-99) Calcium Level 8.7 mg/dL (8.5-10.1) Medications Current Medications Ondansetron HCl (Zofran) 4 mg PRN Q6HRS PRN IV NAUSEA/VOMITING; Start 09/19/19 at 07:00; Stop 09/19/19 at 07:01; Status DC Fentanyl Citrate (Fentanyl 2ml Vial) 25 mcg PRN Q5MIN PRN IV MILD PAIN 1-3; Start 09/19/19 at 07:00; Stop 09/19/19 at 20:00 Fentanyl Citrate (Fentanyl 2ml Vial) 50 mcg PRN Q5MIN PRN IV MODERATE TO SEVERE PAIN Last administered on 09/19/19at 11:47; Start 09/19/19 at 07:00; Stop 09/19/19 at 20:00 Morphine Sulfate (Morphine Sulfate) 1 mg PRN Q10MIN PRN IV SEVERE PAIN 7-10; Start 09/19/19 at 07:00; Stop 09/19/19 at 20:00 Ringer's Solution 1,000 ml @ 30 mls/hr Q24H IV Last administered on 09/19/19at 11:16; Start 09/19/19 at 07:00; Stop 09/19/19 at 18:59 Lidocaine HCl (Xylocaine-Mpf 1% 2ml Vial) 2 ml PRN 1X PRN ID PRIOR TO IV START; Start 09/19/19 at 07:00; Stop 09/19/19 at 20:00 Hydromorphone HCl (Dilaudid) 0.5 mg PRN Q10MIN PRN IV SEV PAIN, Second choice; Start 09/19/19 at 07:00; Stop 09/19/19 at 20:00 Prochlorperazine Edisylate (Compazine) 5 mg PACU PRN PRN IV NAUSEA, MRX1; Start 09/19/19 at 07:00; Stop 09/19/19 at 20:00 Cefazolin Sodium/ Dextrose 50 ml @ 100 mls/hr 1X PREOP PRN IV PRIOR TO PROCEDURE Last administered on 09/19/19at 07:28; Start 09/19/19 at 08:00; Stop 09/19/19 at 08:01; Status DC Sevoflurane (Ultane) 90 ml STK-MED ONCE IH ; Start 09/19/19 at 07:06; Stop 09/19/19 at 07:07; Status DC Rocuronium [place] (Zemuron) 50 mg STK-MED ONCE .ROUTE ; Start 09/19/19 at 07:07; Stop 09/19/19 at 07:07; Status DC Fentanyl Citrate (Fentanyl 2ml Vial) 100 mcg STK-MED ONCE .ROUTE ; Start 09/19/19 at 07:07; Stop 09/19/19 at 07:07; Status DC Neostigmine Methylsulfate (Neostigmine Methylsulfate) 5 mg STK-MED ONCE .ROUTE ; Start 09/19/19 at 07:07; Stop 09/19/19 at 07:07; Status DC Midazolam HCl (Versed) 2 mg STK-MED ONCE .ROUTE ; Start 09/19/19 at 07:07; Stop 09/19/19 at 07:07; Status DC Glycopyrrolate (Robinul) 1 mg STK-MED ONCE .ROUTE ; Start 09/19/19 at 07:07; Stop 09/19/19 at 07:07; Status DC Propofol 20 ml @ As Directed STK-MED ONCE IV ; Start 09/19/19 at 07:07; Stop 09/19/19 at 07:07; Status DC Lidocaine HCl (Lidocaine Pf 2% Vial) 5 ml STK-MED ONCE .ROUTE ; Start 09/19/19 at 07:07; Stop 09/19/19 at 07:07; Status DC Ketorolac Tromethamine (Toradol 30mg Vial) 30 mg STK-MED ONCE .ROUTE ; Start 09/19/19 at 07:07; Stop 09/19/19 at 07:08; Status DC Dexamethasone Sodium Phosphate (Decadron) 4 mg STK-MED ONCE .ROUTE ; Start 09/19/19 at 07:08; Stop 09/19/19 at 07:08; Status DC Ondansetron HCl (Zofran) 4 mg STK-MED ONCE .ROUTE ; Start 09/19/19 at 07:08; Stop 09/19/19 at 07:08; Status DC Phenylephrine HCl (PHENYLEPHRINE in 0.9% NACL PF) 1 mg STK-MED ONCE IV ; Start 09/19/19 at 07:48; Stop 09/19/19 at 07:49; Status DC Ephedrine Sulfate (ePHEDrine PF IN SALINE SYRINGE) 50 mg STK-MED ONCE IV ; Start 09/19/19 at 07:54; Stop 09/19/19 at 07:54; Status DC Fentanyl Citrate (Fentanyl 2ml Vial) 100 mcg STK-MED ONCE .ROUTE ; Start 09/19/19 at 10:04; Stop 09/19/19 at 10:04; Status DC Diphenhydramine HCl (Benadryl) 25 mg PRN Q6HRS PRN PO ITCHING; Start 09/19/19 at 10:30 Diphenhydramine HCl (Benadryl) 25 mg PRN Q6HRS PRN IV ITCHING; Start 09/19/19 at 10:30 Sodium Chloride (Normal Saline Flush) 3 ml QSHIFT PRN IV AFTER MEDS AND BLOOD DRAWS; Start 09/19/19 at 10:30 Dextrose/Sodium Chloride 1,000 ml @ 100 mls/hr Q10H IV Last administered on 09/19/19at 15:39; Start 09/19/19 at 11:30 Dextrose (Dextrose 50%-Water Syringe) 12.5 gm PRN Q15MIN PRN IV SEE COMMENTS; Start 09/19/19 at 10:30 Acetaminophen/ Hydrocodone Bitart (Lortab 5/325) 1 tab PRN Q4HRS PRN PO MILD PAIN 1-3; Start 09/19/19 at 10:30 Acetaminophen/ Hydrocodone Bitart (Lortab 5/325) 2 tab PRN Q4HRS PRN PO MO DERATE PAIN, SEVERE PAIN; Start 09/19/19 at 10:30 Ketorolac Tromethamine (Toradol 30mg Vial) 30 mg PRN Q6HRS PRN IV PAIN Last a dministered on 09/19/19at 15:38; Start 09/19/19 at 10:30; Stop 09/24/19 at 10:29 Ibuprofen (Motrin) 600 mg PRN Q8HRS PRN PO INFLAMMATION; Start 09/19/19 at 10:30 Naloxone HCl (Narcan) 0.4 mg PRN Q2MIN PRN IV SEE INSTRUCTIONS; Start 09/19/19 at 10:30 Sodium Chloride 1,000 ml @ 25 mls/hr Q24H IV ; Start 09/19/19 at 10:24 Morphine Sulfate (Morphine Sulfate) 1 mg PRN Q1HR PRN IV PAIN; Start 09/19/19 at 10:30 Docusate Sodium (Colace) 100 mg BID PO ; Start 09/19/19 at 21:00 Influenza Virus Vaccine Quadrival (Afluria Quad 2019-20 (3yr Up) Syringe) 0.5 ml ONCE ONCE VAX IM ; Start 09/19/19 at 13:15; Stop 09/19/19 at 13:16; Status DC Active Scripts Active Ibuprofen 600 Mg Tablet 600 Mg PO PRN Q6HRS PRN Reported Venlafaxine Hcl Er (Venlafaxine Hcl) 225 Mg Tab.er.24 225 Mg PO DAILY Vistaril (Hydroxyzine Pamoate) 50 Mg Capsule 50 Mg PO PRN PRN Imitrex (Sumatriptan Succinate) 50 Mg Tablet 50 Mg PO ONCE PRN Propranolol Hcl 10 Mg Tablet 10 Mg PO DAILY Buspirone Hcl 15 Mg Tablet 15 Mg PO BID Vitals/I & O Vital Sign - Last 24 Hours 09/19/19 09/19/19 09/19/19 09/19/19 06:34 06:36 10:18 10:18 Temp 98 98.0 97.4 98.0 98.0 97.4 Pulse 76 76 75 Resp 16 16 20 B/P (MAP) 115/72 105/70 Pulse Ox 95 95 98 O2 Delivery Room Air Mask Simple Mask O2 Flow Rate 10 10 09/19/19 09/19/19 09/19/19 09/19/19 10:33 10:48 11:03 11:33 Pulse 70 70 70 Resp 20 20 20 20 B/P (MAP) 113/72 118/79 119/76 Pulse Ox 98 100 91 96 O2 Delivery Simple Mask Simple Mask Room Air Nasal Cannula O2 Flow Rate 10 10 2.0 09/19/19 09/19/19 09/19/19 09/19/19 11:33 11:47 11:48 12:00 Temp 97.0 97.0 Pulse 72 65 Resp 20 20 20 B/P (MAP) 117/67 109/65 Pulse Ox 94 99 96 O2 Delivery Nasal Cannula Nasal Cannula Nasal Cannula Nasal Cannula O2 Flow Rate 2 2.0 2 2.0 09/19/19 09/19/19 09/19/19 09/19/19 12:00 12:15 12:30 12:45 Temp 97.9 97.9 Pulse 74 66 66 72 Resp 16 B/P (MAP) 101/65 (77) 97/65 (76) 101/66 (78) 102/65 (77) Pulse Ox 94 97 94 97 O2 Delivery Nasal Cannula Nasal Cannula Nasal Cannula Nasal Cannula O2 Flow Rate 2.0 2.0 2.0 2.0 09/19/19 09/19/19 09/19/19 13:00 13:30 14:12 Pulse 78 79 B/P (MAP) 98/66 (77) 102/69 (80) Pulse Ox 95 96 O2 Delivery Nasal Cannula Nasal Cannula Nasal Cannula O2 Flow Rate 2.0 2.0 2.0 RODERICK GIL MD Sep 19, 2019 16:30
[2019-09-19] MEDS: HYDROcodone/APAP 5/325MG 1 TAB TABLET PO PRN (17:29)
[2019-09-19] MEDS ORDERED: NICOTINE 14MG PATCH. TD PRN (17:45)
[2019-09-19] MEDS: DOCUSATE SODIUM 100 MG CAPSULE. PO SCH (20:14)
[2019-09-20] MEDS: IV DEXTROSE 5 %-0.45 % NACL 1,000 ML IV SCH (01:44)
[2019-09-20 03:00] VITALS: BP 90/62
[2019-09-20] MEDS: HYDROcodone/APAP 5/325MG 1 TAB TABLET PO PRN (06:31)
[2019-09-20 07:25] LABS: HEMATOCRIT 30.1 % (36.0-47.0); HEMOGLOBIN 9.8 g/dL (12.0-15.5); RED BLOOD COUNT 3.67 x10^6/uL (3.50-5.40); WHITE BLOOD COUNT 11.5 x10^3/uL (4.0-11.0)
[2019-09-20 07:30] VITALS: BP 90/63
[2019-09-20 07:45] LABS: CREATININE 0.8 mg/dL (0.6-1.0); GFR 82.6; POTASSIUM 3.5 mmol/L (3.5-5.1)
[2019-09-20] MEDS ORDERED: IBUP-1060 PO (08:51)
[2019-09-20] MEDS ORDERED: DOCU-109 PO (08:51)
[2019-09-20] MEDS ORDERED: OXYC1TAB15 PO (08:51)
[2019-09-20] MEDS: DOCUSATE SODIUM 100 MG CAPSULE. PO SCH (09:20)
--- NOTE | 2019-09-20 09:28 | PDOC ---
PROGRESS NOTES Subjective Subjective Pt with good pain control. Estelle PO. Voiding. Objective Objective Vital Signs Date Time Temp Pulse Resp B/P (MAP) Pulse Ox O2 Delivery O2 Flow Rate FiO2 09/20/19 07:30 97.5 88 18 90/63 (72) 95 Room Air 97.5 09/19/19 16:34 2.0 Intake and Output 09/20/19 06:59 Intake Total 2490 ml Output Total 2751 ml Balance -261 ml Intake Oral 740 ml IV Total 1750 ml Tube Feeding 0 ml Output Urine Total 1990 ml Post Void Residual 361 ml Estimated Blood Loss 400 ml Bladder Scan Volume Amount Physical Exam Physical Exam Abd: S/NT/ND Port site inc: C/D/I Ext: no C/C/E Assessment Assessment A/P 34y POD #1 s/p LAVH/BS 1.) PO - doing well 2.) Hgb 11.9 -> 9.8 3.) D/c home Comment Review of Relevant I have reviewed the following items dilia (where applicable) has been applied. Labs Laboratory Tests Test 09/19/19 06:21 09/19/19 06:38 09/20/19 06:55 Bedside Urine HCG, Qualitative Hcg negative (Negative) White Blood Count 10.7 x10^3/uL (4.0-11.0) 11.5 x10^3/uL (4.0-11.0) Red Blood Count 4.40 x10^6/uL (3.50-5.40) 3.67 x10^6/uL (3.50-5.40) Hemoglobin 11.9 g/dL (12.0-15.5) 9.8 g/dL (12.0-15.5) Hematocrit 36.7 % (36.0-47.0) 30.1 % (36.0-47.0) Mean Corpuscular Volume 84 fL (79-100) 82 fL (79-100) Mean Corpuscular Hemoglobin 27 pg (25-35) 27 pg (25-35) Mean Corpuscular Hemoglobin Concent 32 g/dL (31-37) 33 g/dL (31-37) Red Cell Distribution Width 17.0 % (11.5-14.5) 17.0 % (11.5-14.5) Platelet Count 465 x10^3/uL (140-400) 410 x10^3/uL (140-400) Neutrophils (%) (Auto) 66 % (31-73) Lymphocytes (%) (Auto) 25 % (24-48) Monocytes (%) (Auto) 5 % (0-9) Eosinophils (%) (Auto) 3 % (0-3) Basophils (%) (Auto) 1 % (0-3) Neutrophils # (Auto) 7.1 x10^3/uL (1.8-7.7) Lymphocytes # (Auto) 2.7 x10^3/uL (1.0-4.8) Monocytes # (Auto) 0.6 x10^3/uL (0.0-1.1) Eosinophils # (Auto) 0.3 x10^3/uL (0.0-0.7) Basophils # (Auto) 0.1 x10^3/uL (0.0-0.2) Sodium Level 138 mmol/L (136-145) 141 mmol/L (136-145) Potassium Level 3.7 mmol/L (3.5-5.1) 3.5 mmol/L (3.5-5.1) Chloride Level 101 mmol/L (98-107) 105 mmol/L (98-107) Carbon Dioxide Level 25 mmol/L (21-32) 29 mmol/L (21-32) Anion Gap 12 (6-14) 7 (6-14) Blood Urea Nitrogen 6 mg/dL (7-20) 7 mg/dL (7-20) Creatinine 0.7 mg/dL (0.6-1.0) 0.8 mg/dL (0.6-1.0) Estimated GFR (Cockcroft-Gault) 96.4 82.6 Glucose Level 88 mg/dL (70-99) 105 mg/dL (70-99) Calcium Level 8.7 mg/dL (8.5-10.1) 8.0 mg/dL (8.5-10.1) Laboratory Tests Test 09/20/19 06:55 White Blood Count 11.5 x10^3/uL (4.0-11.0) Red Blood Count 3.67 x10^6/uL (3.50-5.40) Hemoglobin 9.8 g/dL (12.0-15.5) Hematocrit 30.1 % (36.0-47.0) Mean Corpuscular Volume 82 fL (79-100) Mean Corpuscular Hemoglobin 27 pg (25-35) Mean Corpuscular Hemoglobin Concent 33 g/dL (31-37) Red Cell Distribution Width 17.0 % (11.5-14.5) Platelet Count 410 x10^3/uL (140-400) Sodium Level 141 mmol/L (136-145) Potassium Level 3.5 mmol/L (3.5-5.1) Chloride Level 105 mmol/L (98-107) Carbon Dioxide Level 29 mmol/L (21-32) Anion Gap 7 (6-14) Blood Urea Nitrogen 7 mg/dL (7-20) Creatinine 0.8 mg/dL (0.6-1.0) Estimated GFR (Cockcroft-Gault) 82.6 Glucose Level 105 mg/dL (70-99) Calcium Level 8.0 mg/dL (8.5-10.1) Medications Current Medications Ondansetron HCl (Zofran) 4 mg PRN Q6HRS PRN IV NAUSEA/VOMITING; Start 09/19/19 at 07:00; Stop 09/19/19 at 07:01; Status DC Fentanyl Citrate (Fentanyl 2ml Vial) 25 mcg PRN Q5MIN PRN IV MILD PAIN 1-3; Start 09/19/19 at 07:00; Stop 09/19/19 at 20:00; Status DC Fentanyl Citrate (Fentanyl 2ml Vial) 50 mcg PRN Q5MIN PRN IV MODERATE TO SEVERE PAIN Last administered on 09/19/19at 11:47; Start 09/19/19 at 07:00; Stop 09/19/19 at 20:00; Status DC Morphine Sulfate (Morphine Sulfate) 1 mg PRN Q10MIN PRN IV SEVERE PAIN 7-10; Start 09/19/19 at 07:00; Stop 09/19/19 at 20:00; Status DC Ringer's Solution 1,000 ml @ 30 mls/hr Q24H IV Last administered on 09/19/19at 11:16; Start 09/19/19 at 07:00; Stop 09/19/19 at 18:59; Status DC Lidocaine HCl (Xylocaine-Mpf 1% 2ml Vial) 2 ml PRN 1X PRN ID PRIOR TO IV START; Start 09/19/19 at 07:00; Stop 09/19/19 at 20:00; Status DC Hydromorphone HCl (Dilaudid) 0.5 mg PRN Q10MIN PRN IV SEV PAIN, Second choice; Start 09/19/19 at 07:00; Stop 09/19/19 at 20:00; Status DC Prochlorperazine Edisylate (Compazine) 5 mg PACU PRN PRN IV NAUSEA, MRX1; Start 09/19/19 at 07:00; Stop 09/19/19 at 20:00; Status DC Cefazolin Sodium/ Dextrose 50 ml @ 100 mls/hr 1X PREOP PRN IV PRIOR TO PROCEDURE Last administered on 09/19/19at 07:28; Start 09/19/19 at 08:00; Stop 09/19/19 at 08:01; Status DC Sevoflurane (Ultane) 90 ml STK-MED ONCE IH ; Start 09/19/19 at 07:06; Stop 09/19/19 at 07:07; Status DC Rocuronium Superior (Zemuron) 50 mg STK-MED ONCE .ROUTE ; Start 09/19/19 at 07:07; Stop 09/19/19 at 07:07; Status DC Fentanyl Citrate (Fentanyl 2ml Vial) 100 mcg STK-MED ONCE .ROUTE ; Start 09/19/19 at 07:07; Stop 09/19/19 at 07:07; Status DC Neostigmine Methylsulfate (Neostigmine Methylsulfate) 5 mg STK-MED ONCE .ROUTE ; Start 09/19/19 at 07:07; Stop 09/19/19 at 07:07; Status DC Midazolam HCl (Versed) 2 mg STK-MED ONCE .ROUTE ; Start 09/19/19 at 07:07; Stop 09/19/19 at 07:07; Status DC Glycopyrrolate (Robinul) 1 mg STK-MED ONCE .ROUTE ; Start 09/19/19 at 07:07; Stop 09/19/19 at 07:07; Status DC Propofol 20 ml @ As Directed STK-MED ONCE IV ; Start 09/19/19 at 07:07; Stop 09/19/19 at 07:07; Status DC Lidocaine HCl (Lidocaine Pf 2% Vial) 5 ml STK-MED ONCE .ROUTE ; Start 09/19/19 at 07:07; Stop 09/19/19 at 07:07; Status DC Ketorolac Tromethamine (Toradol 30mg Vial) 30 mg STK-MED ONCE .ROUTE ; Start 09/19/19 at 07:07; Stop 09/19/19 at 07:08; Status DC Dexamethasone Sodium Phosphate (Decadron) 4 mg STK-MED ONCE .ROUTE ; Start 09/19/19 at 07:08; Stop 09/19/19 at 07:08; Status DC Ondansetron HCl (Zofran) 4 mg STK-MED ONCE .ROUTE ; Start 09/19/19 at 07:08; Stop 09/19/19 at 07:08; Status DC Phenylephrine HCl (PHENYLEPHRINE in 0.9% NACL PF) 1 mg STK-MED ONCE IV ; Start 09/19/19 at 07:48; Stop 09/19/19 at 07:49; Status DC Ephedrine Sulfate (ePHEDrine PF IN SALINE SYRINGE) 50 mg STK-MED ONCE IV ; Start 09/19/19 at 07:54; Stop 09/19/19 at 07:54; Status DC Fentanyl Citrate (Fentanyl 2ml Vial) 100 mcg STK-MED ONCE .ROUTE ; Start 09/19/19 at 10:04; Stop 09/19/19 at 10:04; Status DC Diphenhydramine HCl (Benadryl) 25 mg PRN Q6HRS PRN PO ITCHING; Start 09/19/19 at 10:30 Diphenhydramine HCl (Benadryl) 25 mg PRN Q6HRS PRN IV ITCHING; Start 09/19/19 at 10:30 Sodium Chloride (Normal Saline Flush) 3 ml QSHIFT PRN IV AFTER MEDS AND BLOOD DRAWS; Start 09/19/19 at 10:30 Dextrose/Sodium Chloride 1,000 ml @ 100 mls/hr Q10H IV Last administered on 09/20/19at 01:44; Start 09/19/19 at 11:30 Dextrose (Dextrose 50%-Water Syringe) 12.5 gm PRN Q15MIN PRN IV SEE COMMENTS; Start 09/19/19 at 10:30 Acetaminophen/ Hydrocodone Bitart (Lortab 5/325) 1 tab PRN Q4HRS PRN PO MILD PAIN 1-3; Start 09/19/19 at 10:30 Acetaminophen/ Hydrocodone Bitart (Lortab 5/325) 2 tab PRN Q4HRS PRN PO MODERATE PAIN, SEVERE PAIN Last administered on 09/20/19at 06:31; Start 09/19/19 at 10:30 Ketorolac Tromethamine (Toradol 30mg Vial) 30 mg PRN Q6HRS PRN IV PAIN Last administered on 09/19/19at 21:52; Start 09/19/19 at 10:30; Stop 09/24/19 at 10:29 Ibuprofen (Motrin) 600 mg PRN Q8HRS PRN PO INFLAMMATION Last administered on 09/20/19at 06:31; Start 09/19/19 at 10:30 Naloxone HCl (Narcan) 0.4 mg PRN Q2MIN PRN IV SEE INSTRUCTIONS; Start 09/19/19 at 10:30 Sodium Chloride 1,000 ml @ 25 mls/hr Q24H IV ; Start 09/19/19 at 10:24 Morphine Sulfate (Morphine Sulfate) 1 mg PRN Q1HR PRN IV PAIN; Start 09/19/19 at 10:30 Docusate Sodium (Colace) 100 mg BID PO Last administered on 09/20/19at 09:20; Start 09/19/19 at 21:00 Influenza Virus Vaccine Quadrival (Afluria Quad 2019-20 (3yr Up) Syringe) 0.5 ml ONCE ONCE VAX IM Last administered on 09/20/19at 09:22; Start 09/19/19 at 13:15; Stop 09/19/19 at 13:16; Status DC Nicotine (Nicoderm Cq 14mg) 1 patch PRN DAILY PRN TD SMOKING CESSATION Last administered on 09/19/19at 18:19; Start 09/19/19 at 17:45 Active Scripts Active Percocet 5-325 Mg Tablet (Oxycodone/Acetaminophen) 1 Each Tablet 1 Tab PO PRN Q6HRS PRN Ibuprofen 800 Mg Tablet 800 Mg PO PRN Q6HRS PRN Colace (Docusate Sodium) 100 Mg Capsule 100 Mg PO BID Ibuprofen 600 Mg Tablet 600 Mg PO PRN Q6HRS PRN Reported Venlafaxine Hcl Er (Venlafaxine Hcl) 225 Mg Tab.er.24 225 Mg PO DAILY Vistaril (Hydroxyzine Pamoate) 50 Mg Capsule 50 Mg PO PRN PRN Imitrex (Sumatriptan Succinate) 50 Mg Tablet 50 Mg PO ONCE PRN Propranolol Hcl 10 Mg Tablet 10 Mg PO DAILY Buspirone Hcl 15 Mg Tablet 15 Mg PO BID Vitals/I & O Vital Sign - Last 24 Hours 09/19/19 09/19/19 09/19/19 09/19/19 10:18 10:18 10:33 10:48 Temp 97.4 97.4 Pulse 75 70 70 Resp 20 20 20 B/P (MAP) 105/70 113/72 118/79 Pulse Ox 98 98 100 O2 Delivery Mask Simple Mask Simple Mask Simple Mask O2 Flow Rate 10 10 10 10 09/19/19 09/19/19 09/19/19 09/19/19 11:03 11:33 11:33 11:47 Pulse 70 72 Resp 20 20 20 20 B/P (MAP) 119/76 117/67 Pulse Ox 91 96 94 99 O2 Delivery Room Air Nasal Cannula Nasal Cannula Nasal Cannula O2 Flow Rate 2.0 2 2.0 09/19/19 09/19/19 09/19/19 09/19/19 11:48 12:00 12:00 12:15 Temp 97.0 97.9 97.0 97.9 Pulse 65 74 66 Resp 20 16 B/P (MAP) 109/65 101/65 (77) 97/65 (76) Pulse Ox 96 94 97 O2 Delivery Nasal Cannula Nasal Cannula Nasal Cannula Nasal Cannula O2 Flow Rate 2 2.0 2.0 2.0 09/19/19 09/19/19 09/19/19 09/19/19 12:30 12:45 13:00 13:30 Pulse 66 72 78 79 B/P (MAP) 101/66 (78) 102/65 (77) 98/66 (77) 102/69 (80) Pulse Ox 94 97 95 96 O2 Delivery Nasal Cannula Nasal Cannula Nasal Cannula Nasal Cannula O2 Flow Rate 2.0 2.0 2.0 2.0 09/19/19 09/19/19 09/19/19 09/19/19 14:00 14:00 14:12 15:00 Pulse 71 73 76 B/P (MAP) 118/78 (91) 129/82 (98) 125/81 (96) Pulse Ox 95 97 95 O2 Delivery Nasal Cannula Nasal Cannula Nasal Cannula Nasal Cannula O2 Flow Rate 2.0 2.0 2.0 2.0 09/19/19 09/19/19 09/19/19 09/19/19 16:34 17:00 17:29 19:45 Temp 97.9 98.9 97.9 98.9 Pulse 85 85 Resp 20 14 B/P (MAP) 120/81 (94) 96/51 (66) Pulse Ox 97 96 O2 Delivery Nasal Cannula Room Air Room Air Room Air O2 Flow Rate 2.0 09/19/19 09/20/19 09/20/19 09/20/19 20:00 03:00 06:31 07:30 Temp 98.1 98.1 Pulse 71 Resp 14 18 B/P (MAP) 90/62 (71) Pulse Ox 100 O2 Delivery Room Air Room Air Room Air Room Air 09/20/19 07:30 Temp 97.5 97.5 Pulse 88 Resp 18 B/P (MAP) 90/63 (72) Pulse Ox 95 O2 Delivery Room Air Intake and Output 09/19/19 09/19/19 09/20/19 14:59 22:59 06:59 Intake Total 1750 ml 740 ml Output Total 550 ml 1036 ml 1165 ml Balance 1200 ml -1036 ml -425 ml RODERICK GIL MD Sep 20, 2019 09:28
[2019-09-20 10:12] VITALS: BP 112/69
--- NOTE | 2019-09-20 11:18 | DS ---
DATE OF DISCHARGE: 09/20/2019 ADMISSION DIAGNOSES: 1. Heavy bleeding. 2. Dysmenorrhea. 3. Dyspareunia. 4. History of x 4. 5. Tobacco use. DISCHARGE DIAGNOSES: 1. Heavy bleeding. 2. Dysmenorrhea. 3. Dyspareunia. 4. History of x 4. 5. Tobacco use. PROCEDURE: Laparoscopic assisted vaginal hysterectomy with bilateral salpingectomy. BRIEF HOSPITAL COURSE: The patient is a 34-year-old 5, para 4-0-1-4, who presented to the hospital for a scheduled hysterectomy. The patient was undergoing said hysterectomy for menorrhagia and dysmenorrhea, which was discussed in the office on 09/05/2019. The patient underwent said procedure and by postoperative day #1, the patient was meeting all discharge criteria and desired discharge home. DISCHARGE INSTRUCTIONS: The patient was told not to lift anything greater than 20 pounds, have pelvic rest for [address] on narcotics. CALL IF: The patient was to call if she had fevers, chills, nausea, vomiting, abdominal pain or any additional questions or concerns. FOLLOWUP APPOINTMENT: The patient was to follow up on 09/27/2019 at 10:00 a.m. for her incision check. DISCHARGE MEDICATIONS: The patient was given a prescription for Percocet 5/325 mg 10 pills Motrin 800 mg 30 pills and Colace 100 mg 30 pills. RODERICK GIL MD DR: KARTHIK/kelby JOB#: [id number] / [id number] LIVIER
--- NOTE | 2019-09-21 14:06 | PATHOLOGY ---
[facility] Accession Number: [id number] . 01 Material submitted: . uterus - UTERUS, CERVIX, BILATERAL FALLOPIAN TUBES. Modifiers: bilateral . 01 Clinical history: . Menorrhagia, dysmenorrhea . 02 Diagnosis: Uterus and detached bilateral fallopian tubes, laparoscopic assisted vaginal hysterectomy with bilateral salpingectomy: - Adenomyosis, uterine corpus, with myometrial hypertrophy (uterine weight 187 grams). - Weakly secretory endometrium. - Posterior serosal adhesions. - Paratubal cyst, side indeterminant. 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 . (JPM:jay; 09/21/2019) QMS 09/21/2019 1340 Local . 02 Comment: There is no evidence of malignancy. . 02 Electronically signed: . Brice Brand MD, Pathologist NPI- [id number] . 01 Gross description: . The specimen is received in formalin labeled "Helene Cota, uterus, cervix, bilateral fallopian tubes". Received is a 187 g, 12.4 x 6.9 x 5.3 cm uterus with attached cervix and detached fallopian tubes, weighing 1 g each. The uterine serosa is pink-patterson and smooth in appearance with adherent yellow-patterson lobulated tissue and blood coagulum on the posterior aspect measuring 2.1 x 1.3 cm. The 0.5 cm cervical os is surrounded by pale patterson to pink-patterson, wrinkled ectocervical mucosa. The uterus is oriented using the peritoneal reflection and the anterior paracervical margin is inked black. The uterus is opened laterally to reveal a pink-patterson endocervical canal measuring 3.7 cm in length. The endometrial cavity is triangular measuring 6.3 cm in length by 3.5 cm in width. The endometrium is pale patterson, glistening in appearance and measures 0.1 cm in thickness. Serial sectioning reveals a patterson-pink, trabeculated myometrium measuring up to 3.2 cm in thickness displaying a single intramural fibroid measuring 1.2 cm, as well as possible adenomyosis. . The first 1 g fimbriated fallopian tube measures 3.8 cm in length by 0.5 cm in diameter. The serosal surface is inked black. Sectioning reveals a pinpoint to patent lumen. . The second 1 g fimbriated fallopian tube measures 2.8 cm in length by 0.5 cm in diameter. Sectioning reveals a pinpoint lumen. The specimen is submitted representatively as follows: . A1 12:00 cervix A2 6:00 cervix A3 textile designs sales representative sections of lobulated tissue and blood coagulum adherent to uterine serosa A4 anterior endomyometrium A5 posterior endomyometrium A6 textile designs sales representative section of fibroid A7 textile designs sales representative sections of each fallopian tube, one of which is differentially inked. (CAA; 09/20/2019) QA/[facility] 09/20/2019 [facility] Local . 02 Pathologist provided ICD-10: N80.0, N85.2, N85.9, N83.8 . 02 CPT . 432128 Specimen Comment: A courtesy copy of this report has been sent to [phone], [phone] Specimen Comment: [id number] Specimen Comment: Report sent to / DR ALBA Performed at: 01 [facility] [address], [place] [id number] MD Rosales Connell MD Phone: [phone] Performed at: 02 [facility] [address] [place], [place] [id number] MD Brice Brand MD Phone: [phone]
--- NOTE | 2019-09-23 13:02 | PDOC4 ---
OPERATIVE NOTE: PreOp Dx: 1. Heavy bleeding. 2. Dysmenorrhea. 3. History of section x 4. 4. Tobacco use. PostOp Dx: 1. Heavy bleeding. 2. Dysmenorrhea. 3. History of section x 4. 4. Tobacco use. PROCEDURE: Laparoscopic-assisted vaginal hysterectomy with bilateral salpingectomy. ANESTHESIA: General endotracheal intubation. ESTIMATED BLOOD LOSS: 400 mL. URINE OUTPUT: Clear. FINDINGS: Normal uterus, tubes, and ovaries with post-tubal changes noted. COMPLICATIONS: None. SPECIMENS REMOVED: Uterus, tubes, and cervix. RODERICK GIL MD Sep 23, 2019 13:02
== END 2019-09-20 10:20 | disposition home or self-care (01) ==
LOC: SURG 06:10 → 3 NORTH 10:40
PROVIDERS: ADMIT Obstetrics & Gynecology; ATTEND Obstetrics & Gynecology
DX: N94.6 Dysmenorrhea, unspecified (principal); N94.10 Unspecified dyspareunia; F17.200 Nicotine dependence, unspecified, uncomplicated; Z98.891 History of uterine scar from previous surgery; Z23 Encounter for immunization
CPT/HCPCS: 36415; 58552; 80048; 81025; 85025; 85027; 86850; 86900; 86901; 88307; 90471; 90686; 96374; 96376; G0378; G0379; J0171; J0696; J1100; J1885; J2001; J2250; J2370; J2405; J2704; J2710; J3010; J3490; J7030; J7120; A4461

== ENCOUNTER → 2020-01-06 | Outpatient (CLI) | payer MEDICAID ==
[~2020-01-06] MED LIST changes: +OXYC1TAB15 PO
--- NOTE | 2020-01-06 12:43 | KCIC ---
EXAM: Left knee, 3 views. HISTORY: Pain. COMPARISON: None. FINDINGS: 3 views of the left knee are obtained. There is no fracture, dislocation or subluxation. No joint effusion is seen. IMPRESSION: No acute osseous finding. Electronically signed by: Zaina Vogt MD (01/06/2020 12:40 PM) [id number]
== END | disposition home or self-care (01) ==
LOC: KCIC 12:16
PROVIDERS: ATTEND Family Medicine
DX: M25.562 Pain in left knee (principal)
CPT/HCPCS: 73562

== ENCOUNTER 2021-08-01 14:12 | Emergency (ER) | payer MEDICAID ==
[~2021-08-01] VITALS: Ht 154.9 cm; Wt 84.9 kg
[2021-08-01 14:41] VITALS: BP 137/89
[2021-08-01] MEDS ORDERED: CYCL5TAB PO (14:52)
[2021-08-01] MEDS ORDERED: TRAM-48 PO (14:52)
[2021-08-01] MEDS ORDERED: METH4TAB2 PO (14:52)
--- NOTE | 2021-08-01 14:53 | ED.ADGEN ---
Past Medical History Past Medical History: Depression, Fibromyalgia, Migraines, Other Additional Past Medical Histor: neuropathy, chronic pain Past Surgical History: Appendectomy, , Tubal ligation, Other Additional Past Surgical Histo: carpal tunnel Smoking Status: Current Every Day Smoker Alcohol Use: None Drug Use: None General Adult EDM: Chief Complaint: SHOULDER INJURY HPI: HPI: Patient is a 36-year-old female who arrives ambulatory to the emergency department complaining of left-sided neck pain, left shoulder pain as well as left upper chest pain and left upper extremity pain. Patient reports she began experiencing left-sided neck pain yesterday and upon waking today experienced pain radiating into her shoulder and her upper chest as well as left upper extremity. Patient states she has pain whenever she moves her left upper extremity. Patient is puzzled because she does not have any history of trauma as a relates to her pain. She further denies any sensory or motor change and states she has not had any substernal chest pain. Review of Systems: Review of Systems: Constitutional: Denies fever or chills. [] Eyes: Denies change in visual acuity. [] HENT: Denies nasal congestion or sore throat. [] Respiratory: Denies cough or shortness of breath. [] Cardiovascular: Denies chest pain or edema. [] GI: Denies abdominal pain, nausea, vomiting, bloody stools or diarrhea. [] : Denies dysuria. [] Musculoskeletal: Reports neck pain, shoulder pain, left upper extremity pain. [] Integument: Denies rash. [] Neurologic: Denies headache, focal weakness or sensory changes. [] Endocrine: Denies polyuria or polydipsia. [] Lymphatic: Denies swollen glands. [] Psychiatric: Denies depression or anxiety. [] Allergies: Allergies: Allergies Coded Allergies Type Severity Reaction Last Updated Verified No Known Drug Allergies 09/19/19 No Physical Exam: PE: Constitutional: Well developed, well nourished, no acute distress, non-toxic appearance. [] HENT: Normocephalic, atraumatic, bilateral external ears normal, oropharynx moist, no oral exudates, nose normal. [] Eyes: PERRLA, EOMI, conjunctiva normal, no discharge. [] Neck: Left-sided tenderness to palpation without midline spinal tenderness. Normal range of motion, supple, no stridor. [] Cardiovascular:Heart rate regular rhythm, no murmur [] Lungs & Thorax: Bilateral breath sounds clear to auscultation [] Abdomen: Bowel sounds normal, soft, no tenderness, no masses, no pulsatile masses. [] Skin: Warm, dry, no erythema, no rash. [] Back: No tenderness, no CVA tenderness. [] Extremities: Patient has minimal tenderness of her left shoulder with range of motion testing. No cyanosis, no clubbing, ROM intact. Neurologic: Alert and oriented X 3, normal motor function, normal sensory function, no focal deficits noted. [] Psychologic: Affect normal, judgement normal, mood normal. [] Current Patient Data: Labs: Laboratory Tests Test 08/01/21 14:36 POC Urine HCG, Qualitative Hcg negative (Negative) Vital Signs: Vital Signs Date Time Temp Pulse Resp B/P (MAP) Pulse Ox O2 Delivery O2 Flow Rate FiO2 08/01/21 14:41 98.8 67 20 137/89 (105) 98 Room Air 98.8 EKG: EKG: EKG was obtained at 1423 hrs. reveals a normal sinus rhythm with a ventricular rate of 64 bpm. There are no acute ST/T wave changes to denote ischemia. This is an otherwise normal EKG. Heart Score: C/O Chest Pain: No Risk Factors: Risk Factors: DM, Current or recent (<one month) smoker, HTN, HLP, family history of CAD, obesity. Risk Scores: Score 0 - 3: 2.5% MACE over next 6 weeks - Discharge Home Score 4 - 6: 20.3% MACE over next 6 weeks - Admit for Clinical Observation Score 7 - 10: 72.7% MACE over next 6 weeks - Early Invasive Strategies Radiology/Procedures: Radiology/Procedures: [] Course & Med Decision Making: Course & Med Decision Making Pertinent Labs and Imaging studies reviewed. (See chart for details) [] Dragon Disclaimer: Dragon Disclaimer: This electronic medical record was generated, in whole or in part, using a voice recognition dictation system. Departure Departure Impression: Primary Impression: Cervical radiculopathy Disposition: HOME / SELF CARE / HOMELESS Condition: STABLE Referrals: RODERICK ALBA MD (PCP) Patient Instructions: Cervical Radiculopathy Scripts Cyclobenzaprine Hcl (CYCLOBENZAPRINE HCL) 5 Mg Tablet 5 MG PO TID for 5 Days, #15 TAB Prov: PRESTON CEJA DO 08/01/21 Tramadol Hcl (ULTRAM) 50 Mg Tablet 1 TAB PO PRN Q6HRS PRN for pain MDD 4 Tablet(s) for 3 Days, #12 TAB 0 Refills Prov: PRESTON CEJA DO 08/01/21 Methylprednisolone (MEDROL) 4 Mg Tab.ds.pk 1 PKG PO UD for inflammation, #1 PKG Prov: PRESTON CEJA DO 08/01/21 PRESTON CEJA DO Aug 01, 2021 14:53
== END 2021-08-01 15:02 | disposition home or self-care (01) ==
LOC: ER 14:12
DX: M54.12 Radiculopathy, cervical region (principal); M25.512 Pain in left shoulder; R07.89 Other chest pain; G43.909 Migraine, unspecified, not intractable, without status migrainosus; G89.29 Other chronic pain; F17.200 Nicotine dependence, unspecified, uncomplicated
CPT/HCPCS: 81025; 93005; 99283